=== PATIENT | female | born 1960 | race Hispanic/Latino ===

== ENCOUNTER 2024-07-05 14:24 | Emergency (ER) | payer BC ==
[~2024-07-05] VITALS: Ht 149.9 cm; Wt 68.9 kg
[~2024-07-05 14:24] MED LIST: ACET-2743 PO; ALBU18HF7 IH; LISI10TA24 PO; METF-444 PO
[2024-07-05] MEDS: HYDROcodone/APAP 5/325 1 TAB TABLET PO ONE (14:40)
[2024-07-05] MEDS: ketOROlac 15MG/ML VIAL (15MG/ML) IM ONE (14:40)
[2024-07-05] MEDS ORDERED: AMOX1TAB16 PO (14:41)
[2024-07-05] MEDS ORDERED: IBUP-2077 PO (14:41)
[2024-07-05] MEDS ORDERED: ACET-2079 PO (14:41)
--- NOTE | 2024-07-05 14:42 | ERN ---
General Chief Complaint: Tooth Ache/Pain Stated Complaint: TOOTACHE Time Seen by MD: 14:25 History of Present Illness Initial Comments 63F, diabetic, presents for R lower tooth pain x 2 days. No systemic symptoms. Allergies: Coded Allergies: No Known Allergies (Unverified Allergy, Unknown, 05/12/17) Home Meds Reported Medications Acetaminophen (Tylenol Extra Strength) 500 Mg Tablet, 1000 MG PO Q6H PRN for PAIN, TAB 05/12/17 Albuterol Sulfate (Ventolin Hfa) 18 Gm Hfa.aer.ad, 2 PUFF IH QIDP PRN for SHORTNESS OF BREATH/WHEEZING, INHALER 05/12/17 Metformin HCl (Metformin HCl) 500 Mg Tablet, 500 MG PO BIDMEALS, TAB 05/12/17 Lisinopril (Lisinopril) 10 Mg Tablet, 10 MG PO DAILY, TAB 05/12/17 Past Medical History Past Medical History: Diabetes-Type II, High Cholesterol, Hypertension Past Surgical History: Other ROS Dictation CONSTITUTIONAL: No chills, no fever, no weakness, no diaphoresis, no malaise. HEAD/FACE: Tooth ache EENT: No eye pain, no blurred vision, no tearing, no double vision, no ear pain, no ear discharge, no nose pain, no nasal congestion, no throat pain, no throat swelling, no mouth pain. RESPIRATORY: No cough, no orthopnea, no SOB, no stridor, no wheezing. CARDIOVASCULAR: No chest pain, no edema, no palpitations, no syncope. GASTROINTESTINAL/ABDOMINAL: No abdominal pain, no constipation, no diarrhea, no nausea, no vomiting. GENITOURINARY: No abnormal discharge, no dysuria, no frequent urination, no hematuria. No complaints of pain in the genitals. MUSCULOSKELETAL: No back pain, no gout, no joint pain, no joint swelling, no muscle pain, no muscle stiffness, no neck pain. INTEGUMENTARY: No change in color, no change in hair/nails, no dryness, no lesion, no lumps, no rash. NEUROLOGICAL/PSYCH: No anxiety, not depressed, no emotional problem, no headache, no numbness, no pre-existing deficit, no history of seizures, no tremors, no weakness. HEMATOLOGIC/LYMPHATIC: Not anemic, no history of blood clots, no apparent ble eding, no bruising, glands not swollen. All Systems Negative, Except as Noted. Physical Exam Physical Exam Dictation VITAL SIGNS: Reviewed. GENERAL APPEARANCE: Alert, oriented x3, no acute distress, obese. HEAD AND FACE: Non-traumatic. EYES: PERRL, pink conjunctivas, eyelid no trauma, anterior chamber clear. EARS: Pinnas intact and no signs of trauma or erythema. Ear canals clear and no discharge. TMs no erythema. NOSE: No discharge, no bleeding. OROPHARYNX: Mouth normal, teeth no caries, tongue pink. Pharynx clear, no erythema. Tonsils no exudates, no abscesses noted. Mucous membrane moist. NECK: Supple, non-tender, no thyromegaly, no masses, no JVD, no bruits. BREAST: Deferred. CHEST: No tenderness, no crepitus, no paradoxical movement, no retractions. LUNGS: Clear, well-ventilated, symmetric, no rales, no wheezing, no rhonchi, no stridor, good breath sounds bilaterally. HEART: Regular rate, regular rhythm, no murmur, no gallops. VASCULAR: No peripheral edema. ABDOMEN: Soft, positive bowel sounds, nondistended, no guarding, nontender, no rebound, no masses no hepatomegaly, no splenomegaly, no Bennett's sign, no hernias. RECTAL: Deferred. GENITAL: Deferred. NEUROLOGICAL: Normal speech, gross motor function intact, gross sensory function intact. MUSCULOSKELETAL: Neck nontender, full range of motion, back nontender, full range of motion. EXTREMITIES: Nontender, full range of motion. SKIN: Color pink, dry, no turgor, no rash, no lacerations, no abrasions, no contusions. LYMPHATICS: Deferred. MDM CC: Left lower toothache times she was days Historian: Patient Comorbidities: Diabetes Limitations by social determinants health: None Differential diagnosis: Dental infection Clinical exam: Dental infection left lower tooth no abscess No labs or imaging indicated Received IM Toradol here in the ER. We will DC with pain control, antibiotics, recommend dental follow up. ED Course Orders Procedure Category Date Status Time Ketorolac PHA 07/05/24 Complete Tromethamine 15mg/Ml 14:30 Hydrocodone/Apap PHA 07/05/24 Complete 5/325 ([place] 5/325mg) 14:30 Current Medications Medications (Trade) Dose Ordered Sig/Dimitri Route PRN Reason Start Time Stop Time Status Last Admin Dose Admin Acetaminophen/ Hydrocodone Bitart (NORco 5/325MG) 1 tab ONCE ONCE PO 07/05/24 14:30 07/05/24 14:31 Ketorolac Tromethamine (toRADol) 15 mg ONCE ONCE IM 07/05/24 14:30 07/05/24 14:31 Vital Signs Date Time Temp Pulse Resp B/P (MAP) Pulse Ox O2 Delivery O2 Flow Rate FiO2 07/05/24 14:25 99.0 87 20 215/87 95 0 DX & DISP Disposition: Discharge Departure Impression: Primary Impression: Dental infection Condition: Stable Scripts Amoxicillin/Potassium Clav (Amox Tr-K Clv 875-125 mg Tab) 875 Mg-125 Mg Tablet 1 TAB PO BID for 10 Days, #20 TAB 0 Refills Prov: RAYSA GARCIA DO 07/05/24 Ibuprofen (Ibuprofen 800 mg Tab) 800 Mg Tab 800 MG PO Q6H PRN for PAIN, #30 TAB Prov: RAYSA GARCIA DO 07/05/24 Acetaminophen with Codeine (Acetaminophen-Cod #3 Tablet) 300 Mg-30 Mg Tablet 1 TAB PO Q6HPRN PRN for pain for 5 Days, #20 TAB 0 Refills Prov: RAYSA GARCIA DO 07/05/24 Additional Instructions: You have a dental infection. I have prescribed Augmentin, which is an antibiotic. Please take as prescribed. I recommend you alternate Tylenol and ibuprofen with codeine as needed for pain. I have given you prescriptions for these medicines. Please follow up with a dentist. Referrals: JENNIFER CLEMENTE MD (PCP) RAYSA GARCIA DO Jul 05, 2024 14:42
[2024-07-05 15:41] VITALS: BP 180/79; PULSE 85; RESP 18; TEMP 98.9; O2SAT 95
== END 2024-07-05 15:42 | disposition home or self-care (01) ==
LOC: EDH 14:24
DX: K04.7 Periapical abscess without sinus (principal); E11.9 Type 2 diabetes mellitus without complications; E78.00 Pure hypercholesterolemia, unspecified; I10 Essential (primary) hypertension; Z79.899 Other long term (current) drug therapy
CPT/HCPCS: 99284; 96372; J1885

== ENCOUNTER 2025-01-12 06:42 | Day surgery (SDC) | payer OTHER ==
[2025-01-09 09:11] LABS: IMMATURE GRANULOCYTE ABSOLUTE 0.03 K/uL (0-1); NUCLEATED RED BLOOD CELLS 0.0 % (0.0-0.19); PLATELET COUNT (AUTO) 219 K/uL (130-400); RED BLOOD CELL COUNT(AUTO) 5.20 MIL/uL (4.00-5.50); RED CELL DISTRIBUTION WIDTH 14.0 % (11.0-15.5); WHITE BLOOD COUNT (AUTO) 6.9 K/uL (4.8-10.8)
[2025-01-09 09:19] LABS: CREATININE 0.6 mg/dL (0.5-1.0); GLOMERULAR FILTR. RATE CALC 100.0 mL/min (>90); GLUCOSE,RANDOM 187.0 mg/dL (70-105); SODIUM SERUM 142.0 mmol/L (136-145); UREA NITROGEN, BLOOD 14.0 mg/dL (7-18)
[2025-01-09 09:25] VITALS: BP 148/74; PULSE 68; RESP 15; TEMP 97.5
[2025-01-09 09:33] LABS: ADD UA MICROSCOPIC YES; APPEARANCE,URINE CLEAR (CLEAR); GLUCOSE, URINE (UA) >=1000 mg/dL (NEGATIVE); LEUKOCYTE ESTERASE ,URINE NEGATIVE Leu/uL (NEGATIVE); NITRATE,URINE 2+ (NEGATIVE); OCCULT BLOOD,URINE +- (TRACE) (NEGATIVE)
[2025-01-09 09:33] LABS: INR 1.0 (0.85-1.15)
[2025-01-09 09:38] LABS: SQUAMOUS EPITHELIAL CELL,UR RARE /HPF (0-2)
--- NOTE | 2025-01-09 09:51 | EKG ---
[facility] Test Date: 2025-01-09 Test Time: 09:04:13 Pat Name: NEO MORALES Department: [facility] Room: Gender: F Check Out Cashier: [id number] : 1960 Requested By: EFREM MASCORRO Order Number: [id number] Reading MD: Rubio Talbert Measurements Intervals [place] Rate: 67 P: 28 UT: 161 QRS: 2 QRSD: 90 T: 27 QT: 412 QTc: 434 Interpretive Statements Sinus rhythm Compared to ECG 05/12/2017 05:06:34 No significant changes Electronically Signed On 01-09-2025 19:46:48 CDT by Rubio Talbert Please click the below link to view image of tracing.
--- NOTE | 2025-01-11 16:16 | NUR ---
REPORT UA/URINE CX/SENSITIVITY REPORTED TO LORENZA/DR MASCORRO. NO NEW ORDERS GIVEN AT THIS TIME.
[~2025-01-12] VITALS: Ht 149.9 cm; Wt 70.6 kg
[2025-01-12] VITALS (15 sets, daily range): BP systolic 97–144; BP diastolic 46–66; PULSE 66–77; RESP 12–18; TEMP 97–98.4
[~2025-01-12 06:42] MED LIST changes: -ACET-2743 PO; +ATOR40TA71 PO; +BERB500C PO; +BUPR300T53 PO; +DAPA10TA PO; -LISI10TA24 PO; +LISI40TA15 PO; +MECLIZINE PO; +MELO-108 PO; -METF-444 PO; +OMEP40CA21 PO; +PIOG45TA64 PO; +SITA100T12 PO
[2025-01-12] MEDS: 0.9%NACL 1000ML 1,000 ML IV ONE (07:20)
[2025-01-12] MEDS ORDERED: LIDOCAINE PF 100MG/5ML (2%) SYRINGE 5ML ONE (07:35)
[2025-01-12] MEDS ORDERED: SUCCINYLCHOLINE CHLORIDE 20 MG/ML 10 ML VIAL ONE (07:37)
[2025-01-12] MEDS ORDERED: GLYCOPYRROLATE 0.2 MG/ML 5 ML VIAL ONE (07:37)
[2025-01-12] MEDS ORDERED: NEOSTIGMINE METHYLSULFATE 1MG/ML IV ONE (07:37)
[2025-01-12] MEDS ORDERED: MIDAZOLAM HCL 1 MG/ML 2ML VIAL ONE (07:38)
--- NOTE | 2025-01-12 10:06 | OP ---
Operative Note: DATE OF PROCEDURE: 01/12/25 SURGEON: EFREM MASCORRO MD LEAD DESIGNER: [] ANESTHESIA: [] General ANESTHESIOLOGIST/BENDING FRAME OPERATOR: [] esa ANGUIANO PREOPERATIVE DIAGNOSIS: [] Lipoma right upper back POSTOPERATIVE DIAGNOSIS: [] Lipoma right upper back 9-1/2 x 7 x 2 cm SYNOPSIS: [] PROCEDURE: [] Excision of lipoma of the right upper back ESTIMATED BLOOD LOSS: [] 5 cc Specimens removed: Right upper back lipoma Devices left in place: Seven [place] flat drain INDICATIONS: Patient with lipoma causing pain and discomfort DESCRIPTION OF PROCEDURE: Patient is brought to the operating room placed on the operating table in a supine position. Once general endotracheal anesthesia was achieved patient's positioned into a lateral forward positioned in the back is prepped and draped in sterile fashion. We then proceeded to create a transverse incision over top of the lipoma in the right upper back. Dissected through the skin and subcutaneous tissue to expose the fascia of the lipoma. With a sharp dissection removed the lipoma off of the fascia of the muscle. We then proceeded to obtain hemostasis of the muscle. Measured the lipoma at 9.5 x 7 x 2 cm in size. We irrigated the cavity obtain hemostasis. Place a seven Mohawk flat drain and secured it to the skin with 2-0 nylon. We then proceeded to close the skin incision in two layers. 3-0 Vicryl in running fashion for the subcutaneous deep dermal tissue. And the skin is closed with a 4-0 Monocryl running subcuticular fashion and Dermabond is applied over top. Patient tolerated the procedure well all counts correct x2 at the end of the procedure EFREM MASCORRO MD Jan 12, 2025 10:06
--- NOTE | 2025-01-12 10:50 | NUR ---
DRESSING: DRESSING TO RIGHT UPPER BACK DRY/INTACT WITH VERONIQUE DRAIN IN PLACE AND DRAINING RIGHT REDDISH COLOR LIQUID.
--- NOTE | 2025-01-12 11:20 | NUR ---
DRESSING: DRESSING TO RIGHT UPPER BACK DRY/INTACT WITH VERONIQUE DUBOSE INTACT, COMPRESSED, DRAINING REDDISH COLOR LIQUID DRAINAGE.
== END 2025-01-12 11:20 | disposition home or self-care (01) ==
LOC: DAH 06:42
PROVIDERS: ATTEND Student in an Organized Health Care Education/Training Program
DX: D17.1 Benign lipomatous neoplasm of skin and subcutaneous tissue of trunk (principal); E11.9 Type 2 diabetes mellitus without complications; F41.9 Anxiety disorder, unspecified; F32.A Depression, unspecified; I10 Essential (primary) hypertension; K21.9 Gastro-esophageal reflux disease without esophagitis; G43.909 Migraine, unspecified, not intractable, without status migrainosus; Z98.51 Tubal ligation status; Z98.890 Other specified postprocedural states; Z79.01 Long term (current) use of anticoagulants; Z79.899 Other long term (current) drug therapy
CPT/HCPCS: 80048; 85025; 85610; 85730; 87086 ×2; 87186; 81001; 36415; 93005; 21933; 82948 ×2; 88304; A6260; A4663; J3010; J1100; J0330; J7030; J3490 ×2; J2003; J2250; J2704; J2405; J2710; J0665; J2371; J0690 ×2; A4215; A4223; A4222; A4221; A4450; A4600